=== PATIENT | female | born 1975 | race African-American/Black ===

== ENCOUNTER 2024-08-28 05:21 | Day surgery (SDC) | payer OTHER ==
[2024-08-26 10:56] VITALS: BMI 45.4
[2024-08-28 11:00] VITALS: RESP 20
[2024-08-28] MEDS: IODINE/POTASSIUM IODIDE 5%/10% 14 ML BOTTLE NR ONE ×3 (13:15→13:45)
[2024-08-28] MEDS ORDERED: MIDAZOLAM HCL 2 MG/2 ML SINGLE DOSE VIAL ONE (13:20)
[2024-08-28] MEDS ORDERED: PROPOFOL 20 ML ONE (13:35)
[2024-08-28] MEDS ORDERED: DEXAMETHASONE SOD PHOSPHATE 4 MG/1 ML VIAL ONE ×2 (13:40)
[2024-08-28] MEDS ORDERED: ceFAZolin SODIUM 1 GM VIAL ONE ×3 (13:44)
[2024-08-28] MEDS: ceFAZolin SODIUM 1 GM VIAL IVPB ONE (13:45)
[2024-08-28] MEDS ORDERED: KETOROLAC TROMETHAMINE 30 MG/1 ML VIAL ONE (14:03)
[2024-08-28] MEDS ORDERED: ONDANSETRON 4 MG/2 ML VIAL ONE (14:03)
[2024-08-28] MEDS ORDERED: IBUPROFEN 600 MG TABLET (FP) PO PRN (14:29)
[2024-08-28] MEDS ORDERED: ACETAMINOPHEN 325 MG TABLET (FP) PO PRN (14:29)
[2024-08-28] MEDS ORDERED: IBUPROFEN 800 MG/8 ML IJ IVPB PRN (14:29)
[2024-08-28 15:28] VITALS: TEMP 96.9
[2024-08-28] MEDS: CEFAZOLIN 2 GM/D5W 2 GM/50 ML ML IVPB ONE (15:29)
[2024-08-28 16:30] VITALS: BP 122/75; PULSE 68
[2024-08-29] MEDS ORDERED: IBUPROFEN 600 MG TABLET (FP) PO PRN (02:29)
[2024-08-29] MEDS ORDERED: oxyCODONE HCL 5 MG TABLET PO PRN ×2 (02:29)
[2024-08-29] MEDS ORDERED: BISACODYL 10 MG SUPP.RECT RC PRN (14:29)
== END 2024-08-28 16:10 | disposition home or self-care (01) ==
LOC: JASU-SURG 05:21
PROVIDERS: ATTEND Obstetrics & Gynecology
PROC: 0UBC7ZX Excision of Cervix, Via Natural or Artificial Opening, Diagnostic (ICD-10-PCS; principal; 2024-08-28 13:00)
DX: N72 Inflammatory disease of cervix uteri (principal)
CPT/HCPCS: 88305-TC; 88307-TC; 88341-TC; 88342-TC; 94760